=== PATIENT | male | born 1985 | race American Indian/Alaskan Native ===

== ENCOUNTER 2022-12-04 14:50 | Emergency (ER) | payer MEDICAID, OTHER ==
[2022-12-04] MEDS ORDERED: Lidocaine 1% 20 ML MDV INJECT ONE (15:59)
[2022-12-04] MEDS ORDERED: Diphtheria,Pertussis(Acell),Tetanus Vaccine 0.5 ML Syringe IM ONE (16:25)
== END 2022-12-04 16:53 | disposition home or self-care (01) ==
LOC: JP.ED 14:50
DX: S01.01XA Laceration without foreign body of scalp, initial encounter (principal); F17.210 Nicotine dependence, cigarettes, uncomplicated; W01.10XA Fall on same level from slipping, tripping and stumbling with subsequent striking against unspecified object, initial encounter; Y92.009 Unspecified place in unspecified non-institutional (private) residence as the place of occurrence of the external cause
CPT/HCPCS: 12002; 90471; 90715; 99282-25